=== PATIENT | female | born 1980 | race Caucasian/White ===

== ENCOUNTER 2016-11-24 09:14 | Emergency (ER) | payer BC ==
--- NOTE | 2016-11-24 09:39 | ERNOTE ---
Lower Extremity HPI - Narrative Date of Service: 11/24/16 - General Lower Extremities Pain: ankle: right Time Seen by Provider: 11/24/16 09:33 Source: patient Exam Limitations: no limitations - Immun/Allergies/Home Medications Immunizations: IMMUNIZATION HX Immunizations Up to Date Yes History of Influenza Vaccine Yes Hx Pneumococcal Vaccination No Allergies/Adverse Reactions: Allergies Allergy/AdvReac Type Severity Reaction Status Date / Time No Known Allergies Allergy Unverified 11/24/16 09:30 Home Medications: HOME MEDICATIONS ALPRAZolam [Xanax] 0.5 mg PO HS 11/24/16 [Last Taken Unknown] Labetalol HCl [Trandate] 100 mg PO BID 11/24/16 [Last Taken Unknown] NIFEdipine [Procardia (Nifedipine)] 30 mg PO DAILY 11/24/16 [Last Taken Unknown] - History of Present Illness Narrative: Patient presents to the ED for right lateral ankle pain after an injury. THis occurred with softball yesterday. had a pop in the ankle. Lateral ankle swelling and pain. She took 800mg Ibuprofen and the pain is now better with that. no focal N/T/W. no other injuries. Worse with moving ankle and weight bearing. Occurred: yesterday Location of Incident: other - Softball Method of Injury: Reports: twisted Modifying Factors - (Improves): Reports: rest Modifying Factors - (Worsens): Reports: movement Associated Symptoms: Reports: popping sensation. Denies: sensory loss, other injuries Other Injuries: Reports: none Subsequent Symptoms: Denies: sensory loss, motor loss Prior Treament: Denies: recently seen Review of Systems - Review of Systems Constitutional: Absent: fever - Patient's Past Medical History Patient History - Medical: No pertinent hx Patient History - Cardiac/Respiratory: Hypertension Patient History - Cancer: No Hx of Cancer Patient History - Surgical Procedures: D & C Patient History - Other: None - Family History Dad Family History - Medical: Depression, Hypothyroidism Family History - Cardiac/Respiratory: Hypertension - Social History Living Situations: home Abuse History: No History of abuse Psych History: No pertinent hx Smoking Status: Never smoker Have you smoked in the past 12 months: No Do you dip or chew tobacco: No Alcohol Use: occasionally Drug Use: none - Immunizations Immunizations Up to Date: Yes Hx Pneumococcal Vaccination: No History of Influenza Vaccine: Yes Physical Exam - Physical Exam General Appearance: Present: alert, no apparent distress Head Exam: Present: normal inspection Respiratory: Present: no respiratory distress Cardiovascular/Chest: Present: normal peripheral pulses Extremity Exam: Present: other - No tenderness of the bones proximal to the ankle. Lateral ankle swelling noted. Tendenress lateral malleolus, no medical tendenerss. No gross instability but pain limts exam. No foot tenderness. Foot warm and well perfused. No other point bone tenderness. Murphy testing reveals Achilles to be intact Neurological Exam: Present: alert, normal mood/affect, no motor/sensory deficits Skin Exam: Present: normal color, warm/dry, other - No laceration. No redness or warmth ED Progress - Vital Signs Patient's Vital Signs:: I have reviewed the patient's vital signs. Vital Signs: Vital Signs 11/24/16 09:17 Temperature 36.5 C Pulse Rate 85 Respiratory 16 Rate Blood Pressure 134/94 O2 Sat by Pulse 100 Oximetry - X-Ray X-Ray #1 X-Ray: ankle Interpretation: Interp. by me X-ray Comments: I reviewed official x-ray report - Progress/Reassessment Chief Complaint: Ankle Injury/ Pain Progress Note-Subjective: 11/24/16 09:58 NO Fx. no neuro vascular deficits. She has ortho appt today at 1:15pm. Air cast and close f/u. Departure Clinical Impression: Ankle injury - Departure Disposition: Home self-care Condition: Stable Instructions: Ankle Pain Additional Instructions: Rest. Ice. Elevation. ibuprofen. Splint. Call ortho for an office appointment. Return for increased pain, redness or swelling, numbness, tingling , weakness or if your condition worsens or changes in any way. Referrals: Collin Jain MD [Primary Care Provider] -
[2016-11-24 10:16] VITALS: BP 138/93
== END 2016-11-24 10:01 | disposition home or self-care (01) ==
LOC: ER 09:14
PROC: 2W3SX1Z Immobilization of Right Foot using Splint (ICD-10-PCS; principal; 2016-11-24)
DX: S99.911A Unspecified injury of right ankle, initial encounter (principal); X58.XXXA Exposure to other specified factors, initial encounter; Y93.64 Activity, baseball; Y92.320 Baseball field as the place of occurrence of the external cause; I10 Essential (primary) hypertension